=== PATIENT | male | born 1980 | race African-American/Black ===

== ENCOUNTER 2017-10-30 08:15 | Emergency (ER) | payer BC ==
[2017-10-30 10:14] LABS: Bilirubin Negative (Negative); Blood, Urine Negative (Negative); Glucose, Urine (Dipstick) Negative (Negative); Ketone, Urine Negative (Negative); Nitrite Negative (Negative); Protein, Urine (Dipstick) Negative (Neg-Trace)
--- NOTE | 2017-10-30 11:25 | RAD ---
3 VIEWS LUMBAR SPINE: Date: 10/30/17 HISTORY: Back pain. FINDINGS: AP, lateral, and coned-down views of the lumbar spine demonstrate what appear to be five non-rib bear ing lumbar vertebra. There is a transitional type S1 vertebral body with partial lumbarization. There is an enlarged right S1 transverse process with pseudoarthrosis with the rest of the right sacrum. Vertebral bodies are unremarkable otherwise. No acute fractures or bony lesions seen. IMPRESSION: Transitional S1 vertebra. Otherwise unremarkable 3 views lumbar spine. POS: [facility]
== END 2017-10-30 11:04 | disposition home or self-care (01) ==
LOC: ERS 08:15
DX: S39.012A Strain of muscle, fascia and tendon of lower back, initial encounter (principal); X58.XXXA Exposure to other specified factors, initial encounter
CPT/HCPCS: 72100; 81003

== ENCOUNTER 2018-06-08 16:50 | Emergency (ER) | payer BC ==
[2018-06-08] MEDS ORDERED: Ketorolac Tromethamine 30 MG/ML VIAL ONE (17:19)
--- NOTE | 2018-06-08 17:48 | RAD ---
LUMBAR SPINE THREE VIEWS: 06/08/18 HISTORY: Injury. Back pain. FINDINGS: A transitional vertebra is seen. No fracture, subluxation or bony destruction is identified. The davison sitional vertebra is S1 with partial lumbarization. This demonstrates pseudarthrosis with the rest of the right sacrum. IMPRESSION: No acute process. POS: [facility]
== END 2018-06-08 17:55 | disposition home or self-care (01) ==
LOC: ERS 16:50
DX: M54.5 Low back pain (principal)
CPT/HCPCS: 72100; J1885

== ENCOUNTER 2018-08-02 09:53 | Emergency (ER) | payer BC ==
--- NOTE | 2018-08-02 11:34 | RAD ---
PA AND LATERAL CHEST: HISTORY: Chest pain. FINDINGS: The cardiomediastinum is normal. The lungs are well expanded and clear. The bony thorax is normal. IMPRESSION: Normal examination. POS: [facility]
[2018-08-02] MEDS ORDERED: Ketorolac Tromethamine 30 MG/ML VIAL ONE (12:05)
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
== END 2018-08-02 12:24 | disposition home or self-care (01) ==
LOC: ERS 09:53
DX: S09.90XA Unspecified injury of head, initial encounter (principal); R07.9 Chest pain, unspecified; W22.8XXA Striking against or struck by other objects, initial encounter
CPT/HCPCS: 69210; 70450; 71046; 93005; J1885

== ENCOUNTER 2018-11-25 01:03 | Emergency (ER) | payer BC | END 2018-11-25 02:43 | disposition home or self-care (01) | LOC: ERS 01:03 | DX: K60.2 Anal fissure, unspecified (principal) | CPT/HCPCS: 99282 ==

== ENCOUNTER 2018-12-27 11:22 | Emergency (ER) | payer BC | END 2018-12-27 14:00 | disposition home or self-care (01) | LOC: ERS 11:22 | DX: S39.012A Strain of muscle, fascia and tendon of lower back, initial encounter (principal); X58.XXXA Exposure to other specified factors, initial encounter | CPT/HCPCS: 99283 ==

== ENCOUNTER 2019-01-14 20:10 | Emergency (ER) | payer BC ==
[2019-01-14] MEDS ORDERED: Ondansetron ODT 4 MG TAB ONE (20:17)
[2019-01-14 20:43] LABS: Bilirubin Negative (Negative); Blood, Urine Negative (Negative); Clarity CLOUDY (Clear); Glucose, Urine (Dipstick) Negative (Negative); Leukocyte Negative (Negative); Nitrite Negative (Negative); Protein, Urine (Dipstick) Negative (Neg-Trace); Specific Gravity, Urine 1.017 (1.002-1.036)
[2019-01-14 20:45] LABS: #Eosinphils 0.3 thou/uL (0.0-0.7); #Lymphocytes 3.2 thou/uL (1.20-3.40); #Monocytes 0.9 thou/uL (0.11-0.59); #Neutrophils 5.9 thou/uL (1.40-6.50); %Basophils 0.3 % (0.0-1.0); %Eosinophils 3.1 % (0.0-10.0); %Lymphocytes 30.9 % (21.0-51.0); %Monocytes 8.3 % (0.0-10.0); %Neutrophils 57.4 % (42.0-75.0); Hemoglobin 14.8 g/dL (14.0-18.0); Mean Corpuscular HGB CONC 32.1 g/dL (32.0-36.0); Mean Corpuscular Hemoglobin 27.9 pg (27.0-31.0); Mean Corpuscular Volume 86.8 fL (78.0-98.0); Mean Platelet Volume 8.3 fL (7.4-10.4); Platelet Count 253 thou/uL (130-400); RBC Distribution Width 11.8 % (11.5-14.5); White Blood Cell (WBC) Count 10.3 thou/uL (4.8-10.8)
[2019-01-14 20:53] LABS: Amphetamine Not Detected (NotDetected); Barbiturates Screen Not Detected (NotDetected); Benzodiazepine Screen Not Detected (NotDetected); Cocaine Metabolite Screen Not Detected (NotDetected); Medtox Control Line Valid? VALID (VALID); Medtox Reader # READER 4; Methadone Not Detected (NotDetected); Methamphetamine Not Detected (NotDetected); Opiate Screen Not Detected (NotDetected); Oxycodone Screen Not Detected (NotDetected); Phencyclidine (PCP) Not Detected (NotDetected); THC/Cannabinoid Screen Not Detected (NotDetected); Tricyclic Screen Not Detected (NotDetected)
[2019-01-14 21:01] LABS: Anion Gap 12 mmol/L (10-20); BUN (Urea Nitrogen) 11 mg/dL (8.9-20.6); Calc. Creatinine Clearance 0 mL/min (70-130); Calcium 8.9 mg/dL (7.8-10.44); Carbon Dioxide 24 mmol/L (22-29); Chloride 105 mmol/L (98-107); Estimated GFR-MDRD Greater than 90; Glucose 139 mg/dL (70-105); Potassium 3.4 mmol/L (3.5-5.1); Sodium 138 mmol/L (136-145)
--- NOTE | 2019-01-14 22:29 | RAD ---
CHEST ONE VIEW: Indication: Chest pain FINDINGS: Lungs are clear. Heart size is normal. No acute osseous abnormality is evident. The examination is no t appreciably changed from a comparison dated 08-02-18. IMPRESSION: No acute cardiopulmonary abnormality. POS: [facility]
[2019-01-14] MEDS ORDERED: Ketorolac Tromethamine 30 MG/ML VIAL ONE (22:50)
== END 2019-01-14 23:26 | disposition home or self-care (01) ==
LOC: ERS 20:10
DX: R07.89 Other chest pain (principal)
CPT/HCPCS: 36415; 71045; 80048; 80306; 81003; 85025; 93005; 96372; J1885; Q0162